=== PATIENT | female | born 1975 | race Caucasian/White ===

== ENCOUNTER 2022-01-06 08:16 | Emergency (ER) | payer BC, SELFPAY ==
[2022-01-06] VITALS (8 sets, daily range): BP systolic 138–153; BP diastolic 88–106; PULSE 87–88; RESP 16–20; O2SAT 95–100
--- NOTE | ~2022-01-06 | US_ITS ---
EXAMINATION: US abdomen limited DATE: 01/06/2022 09:28 INDICATION: Right upper quadrant abdominal pain. TECHNIQUE: Multiple grayscale and Doppler ultrasound images of the abdomen were obtained. COMPARISON: CT abdomen and pelvis 05/09/2017 FINDINGS: The visualized portions of the head and body of the pancreas are normal. The liver is vaibhav l without focal lesion. No liver surface nodularity. There is normal flow in main portal vein. The ga llbladder is normal in size. No gallstones or gallbladder wall thickening. There was no sonographic M urphy sign. The common duct is normal and measures 3 mm. IMPRESSION: 1. Normal right upper quadrant ultrasound. Reviewed, dictated and finalized at location A.
--- NOTE | 2022-01-06 08:45 | PC.NURSE ---
EDP at bedside to assess pt.
--- NOTE | 2022-01-06 08:48 | ED.ABDPAIN ---
HPI - Abdominal Pain General Chief Complaint: Abdominal Pain Stated Complaint: abd pain Time Seen by Provider: 01/06/22 08:43 Source: patient Mode of arrival: ambulatory Limitations: no limitations History of Present Illness HPI narrative: 46-year-old female presents emergency room secondary abdominal pain. She thinks is her gallbladder. She is acetaminophen pain in the past. She never had a work-up and evaluation for this. The pain is noted to be in the epigastric right upper quadrant with some radiation towards the back. No associated vomiting. No chills or fevers. There is a strong family history of gallbladder disease. Related Data Home Medications Medication Instructions Recorded Confirmed buspirone 10 mg tablet 10 mg PO BID 09/18/21 09/18/21 cetirizine 10 mg capsule 10 mg PO DAILY PRN 09/18/21 09/18/21 lisinopril 10 mg tablet 10 mg PO DAILY 09/18/21 09/18/21 sertraline 25 mg tablet 25 mg PO DAILY 09/18/21 09/18/21 thyroid (pork) 15 mg tablet 15 mg PO DAILY 09/18/21 09/18/21 Allergies Allergy/AdvReac Type Severity Reaction Status Date / Time No Known Allergies Allergy Unverified 05/09/17 07:17 Review of Systems Review of Systems: CONSTITUTIONAL: Denies fever, chills, or sweats. EYES: Denies visual changes, redness, or discharge. ENT: Denies rhinorrhea, congestion, sore throat, or otalgia. CARDIOVASCULAR: Denies chest pain, palpitations, or edema. RESPIRATORY: Denies cough or dyspnea. GASTROINTESTINAL: Pain in the epigastric right upper quadrant area. No nausea vomiting diarrhea.. GENITOURINARY: Denies dysuria or hematuria. SKIN: Denies rash or itching. MUSCULOSKELETAL: Denies back pain, joint pain, or myalgia. NEUROLOGIC: Denies headache, numbness, or weakness. PSYCHIATRIC: Denies anxiety or depression. [facility] Family History Family History Father Family history of malignant neoplasm of thyroid Family history of type 2 diabetes mellitus Mother Family history of type 1 diabetes mellitus Social History Social History Alcohol intake: current Exam Narrative: APPEARANCE: Well appearing, no pain or distress, well-nourished. Head normocephalic and atraumatic. EYES: PERRLA/EOMI, conjunctivae very clear. NOSE: Normal with no drainage EARS:TMS clear Lukasz Santa, with good light reflex. THROAT: Pharynx clear, no exudate. NECK: Supple. No adenopathy, no masses. RESPIRATORY: Airway patent, respirations nonlabored. Clear to auscultation bilaterally, no rales, rhonchi, wheezing. CARDIOVASCULAR: Regular rate and rhythm without murmurs, rubs, or gallops. ABDOMINAL: Tenderness to palpation of epigastric right upper quadrant region. No rebound or guarding. Normal bowel sounds. No masses. Musculoskeletal: Moves all extremities. Strength/ROM intact, No edema, No calf tenderness. NEURO: Alert. Cranial nerves II through XII intact. Normal gait. Good coordination. Nonfocal examination. SKIN:: Warm, dry. Normal Color PSYCHIATRIC: Normal affect/mood, normal interaction Course Vital Signs Vital signs: Vital Signs Pulse Rate 87 01/06/22 08:32 Respiratory Rate 20 01/06/22 08:32 Blood Pressure 153/106 H 01/06/22 08:32 Pulse Oximetry 99 01/06/22 08:32 Pulse Rate 87 01/06/22 08:32 Respiratory Rate 20 01/06/22 08:32 Blood Pressure 143/103 H 01/06/22 09:47 Pulse Oximetry 97 01/06/22 09:47 MDM - Abdominal Pain MDM Narrative Medical decision making narrative: Ultrasound official gallbladder is completely normal. This was all reviewed with the patient. Also explained to her that there are occasions where the gallbladder can actually look normal but not function normal. In those cases would need a nuclear medicine scan. Continues to have problems need to follow with a physician getting that scheduled. Patient probably has some gastritis possibly even peptic ulcer disease. We will start
--- NOTE | 2022-01-06 09:03 | PC.NURSE ---
Patient off unit to US.
[2022-01-06] MEDS: MORPHINE SULFATE (*CRX) 2 MG/ML INJ IV PUSH (09:23)
[2022-01-06] MEDS: ONDANSETRON INJ 4 MG/2 ML VIAL IV PUSH (09:24)
[2022-01-06 09:45] LABS: Basophils Absolute Auto 0.1 K/mm3 (0.0-0.1); Basophils Percent Auto 0.7 % (0.2-1.2); Eosinophils Absolute Auto 0.1 K/mm3 (0-0.3); Hematocrit 38.2 % (37.0-47.0); Immature Granulocyte Absolute 0.03 K/mm3 (0.00-0.031); Immature Granulocyte Percent A 0.4 % (0-0.5); Lymphocytes Absolute Auto 0.55 K/mm3 (0.9-3.2); Lymphocytes Percent Auto 7.5 % (18.3-44.2); Mean Corpuscular Hemoglobin 29.3 pg (26-34); Mean Corpuscular Volume 86.2 fl (80-100); Monocytes Absolute Auto 0.3 K/mm3 (0.1-0.6); Monocytes Percent Auto 3.7 % (2.6-8.5); Neutrophils Absolute Auto 6.4 K/mm3 (1.3-6.7); Neutrophils Percent Auto 86.7 % (45.5-73.1); Platelet Count Result 319 k/mm3 (150-375); Red Blood Count 4.43 M/mm3 (4.2-5.4); Red Cell Distribution Width 12.5 % (11.5-14.5); White Blood Count 7.3 K/mm3 (4.5-10.0)
[2022-01-06 09:57] LABS: Alanine Aminotransferase 12 U/L (4-35); Albumin Level 5.1 g/dL (3.5-5.1); Alkaline Phosphatase 56 U/L (38-126); Anion Gap 11 mmol/L (8-16); Aspartate Amino Transferase 24 U/L (14-36); Bilirubin,Total 0.4 mg/dL (0.2-1.3); Blood Urea Nitrogen 16 mg/dL (7-17); Calcium 8.9 mg/dL (8.4-10.2); Carbon Dioxide 17 mmol/L (22-30); Chloride 105 mmol/L (98-107); Estimated CRCL calculation 107 ml/min; Estimated Glomerular Filt Rate > 60; Glucose 127 mg/dL (65-110); Lipase 59 U/L (23-300); Potassium 4.4 mmol/L (3.4-5.0); Sodium 133 mmol/L (137-145)
--- NOTE | 2022-01-06 09:58 | PC.NURSE ---
EDP back at bedside to update patient on results and plan of care.
== END 2022-01-06 10:17 | disposition home or self-care (01) ==
PROVIDERS: Emergency Provider Emergency Medicine
DX: K29.70 Gastritis, unspecified, without bleeding (principal); K29.90 Gastroduodenitis, unspecified, without bleeding; Z79.899 Other long term (current) drug therapy
CPT/HCPCS: 36415; 76705; 80053; 83690; 85025; 96374; 96375; 99284; J2270; J2405

== ENCOUNTER 2022-08-05 01:20 | Day surgery (SDC) | payer BC, SELFPAY ==
[2022-07-30 12:16] VITALS: BMI 28.2
--- NOTE | 2022-07-30 12:18 | PC.NURSE ---
Report to the Outpatient Waiting Room, entrance under the green pavilion located off [facility], at time _0600__ on date _08/05/22_. Planned Procedure Time: _0730_. Time changes happen often and if your time is changed the preop area will call you the afternoon before. - You and your visitor will be asked to self-screen and do not enter if you have any COVID symptoms. - We encourage only one visitor and NO visitors under age 16 are allowed at this time. Your visitor will receive communication by the phone number that is given day of service. - The patient visitor is requested to social distance or may leave the building when not with patient due to restrictions. - A mask is required within the hospital. Patients may have clear liquids (water, carbonated beverages, clear teas, apple juice) until 3 hours prior to surgery with a maximum of 20 ounces. - No food from midnight until time of surgery - Infants may have breast milk until 4 hours before surgery, infant formula 6 hours prior to surgery. - Children will be allowed to drink immediately following surgery. If applicable, please bring a bottle or sippy cup to assist with drinking. Juice, water, soda, and popsicles are readily available. For infants on formula, please bring formula the day of surgery. Pacifiers are allowed. Take the following medications with a SIP of water the morning of surgery: Medications to discontinue per physician Date to take last dose Please no make-up, nail kiswahili, hairspray, perfume, deodorant, or body powder the day of surgery. No jewelry (including any body piercings) or valuables the day of surgery, leave them at home. Please take a shower or bath the night before, or the morning of, surgery with an antibacterial soap. Wear comfortable, loose fitting clothing. Children are encouraged to wear pajamas. - Jewelry must be removed prior to entering the operating room. Rings and piercings that are not removed may be cut off. - The hospital will not accept responsibility for valuables. - Please leave all valuables, including medications, at home the day of surgery. If you are going home after surgery, a licensed driver material handler must drive you home. - NO public transportation without another adult. - We recommend that an adult stay with you for 24 hours following discharge. - We also recommend that you do not drive, make important decision, drink alcoholic beverages, or take any drugs that were not prescribed by your health care provider for at least 24 hours after your discharge time. For Pediatric surgeries, we recommend two adults accompany the child home. Follow any additional instructions given to you from your surgeon. If you or anyone in your household have experienced Covid symptoms in the past week, please notify your surgeon or the nurse liaison at the phone number below for possible testing. Telephone instructions given to _patient__and asked if any additional questions and then verbalized understanding. Patient advised to call surgeon office or pre surgery nurse liaison [phone] if any additional questions.
[2022-08-05] MEDS: ACETAMINOPHEN 500 MG TABLET 1000 MG PO (06:17)
[2022-08-05 06:36] VITALS: BP 132/96; PULSE 80; RESP 16; TEMP 36.4; O2SAT 98
[2022-08-05] MEDS: LACTATED RINGERS 1,000 ML 30 ML IV CONT (06:56)
--- NOTE | 2022-08-05 06:58 | WPDANESEPPF ---
Anes - Initial Pre Proc Eval Procedure: Operation Date: 08/05/22 07:30 Proposed Procedures p Hysteroscopy, with Patricia Endometrial Ablation - Brit Davidson MD Date/Time: 08/05/22 06:58 Surgeon: Brit Davidson MD Pre Op Diagnosis: menorrhagia Patient Data Age: 46 Gender: F Height: 1.68 m Weight: 82.2 kg Last Vital Signs Temp 36.4 C 08/05/22 06:36 Pulse 80 08/05/22 06:36 Resp 16 08/05/22 06:36 BP 132/96 H 08/05/22 06:36 Pulse Ox 98 08/05/22 06:36 O2 Del Method Room Air 08/05/22 06:36 Allergies Allergy/AdvReac Type Severity Reaction Status Date / Time No Known Allergies Allergy Verified 08/05/22 06:16 Home Medications Medication Instructions Recorded Confirmed Type cetirizine 10 mg capsule (Zyrtec) 10 mg PO DAILY PRN allergy 09/18/21 08/05/22 History lisinopril 10 mg tablet 10 mg PO DAILY 09/18/21 07/30/22 History thyroid (pork) 15 mg tablet 15 mg PO DAILY 09/18/21 07/30/22 History ([place] Thyroid) Patient hx anesthesia problems: none Family hx anesthesia problems: none Results Review: All pre-operative results and documents have been reviewed as part of the pre-operative evaluation. [facility] Surgical History Surgical History (Updated 08/05/22 @ 06:58 by Isreal Chadwick MD) H/O colonoscopy Family History Family History Father Family history of malignant neoplasm of thyroid Family history of type 2 diabetes mellitus Mother Family history of type 1 diabetes mellitus Social History Social History Years smoked: 10 Smoking status: Former smoker Alcohol intake: current Alcohol use details: soically on weekends Substance use: never Substance use type: does not use Last use: 07/24/2012 Living arrangements: with family Spiritual care concerns: No Anes - Eval Final PreProcedure Day of Procedure 08/05/22 06:58 Patient weight: overweight Heart: regular rate and rhythm Lungs: clear to auscultation Airway: Mallampati scale class II Neurological: alert and oriented Last oral intake: >/= 8 hours ASA classification: II Emergent: no Anesthetic plan: proceed Anesthesia type and monitoring: general GIVS and standard monitoring Results Review: All pre-operative results and documents have been reviewed as part of the pre-operative evaluation. Informed Consent: The patient's anesthetic plan and its attendant risks and benefits were discussed with the patient/family/POA. Questions were solicited and answers provided to the satisfaction of the patient/family/POA.
--- NOTE | 2022-08-05 07:14 | WPDHPUPDATE1 ---
History and Physical Update Update Date/Time: 08/05/22 07:14 History and Physical has been reviewed, including an updated exam of the patient. There are NO changes in the patient's condition. Risks, benefits, and alternatives have been discussed and questions answered. Patient agrees to proceed with procedure.
--- NOTE | 2022-08-05 07:29 | PM.IMHP ---
H&P: HPI History of Present Illness Date/Time: 08/05/22 07:29 Chief Complaint: Menorrhagia Narrative: this patient is a 46-year-old female with severe menorrhagia. We have agreed to perform laparoscopic bilateral salpingectomy and endometrial ablation. She understands that there is wrist surgery. She understands injuries may occur that result in hospitalization, more surgery, severe illness. She understands risk of hemorrhage and infection. Review of Systems Review of Systems: All systems reviewed & are unremarkable except as noted in HPI and below Constitutional: Constitutional: Denies chills, Denies fatigue, Denies fever(s) and Denies weakness Eyes: Eyes: Denies blurry vision, Denies change in vision, Denies loss of peripheral vision, Denies loss of vision, Denies other visual disturbances and Denies eye pain ENT: Denies vertigo, Denies dizziness, Denies hearing loss, Denies mouth pain, Denies nasal obstruction, Denies neck mass and Denies neck pain Cardiovascular: Cardiovascular: Denies chest pain, Denies diaphoresis, Denies syncope, Denies leg edema and Denies dyspnea Respiratory: Respiratory: Denies chest congestion, Denies cough, Denies hemoptysis, Denies dyspnea and Denies wheezing Gastrointestinal: Gastrointestinal: Denies abdominal pain, Denies constipation, Denies diarrhea, Denies nausea and Denies vomiting Genitourinary: Genitourinary: Denies hematuria, Denies change in libido, Denies nocturia, Denies genital lesions, Denies flank pain and Denies urinary urgency Musculoskeletal: Musculoskeletal: Denies abnormal gait, Denies back pain, Denies myalgias, Denies arthralgias, Denies joint swelling, Denies muscle weakness and Denies neck pain Integumentary/Breasts: Skin/Breast: Denies swelling, Denies breast pain, Denies breast mass, Denies dry skin, Denies nipple discharge, Denies unusual bruising and Denies jaundice Neurologic: Denies Neuro-related abnormal movements, Denies Abnormal speech present, Denies abnormal gait, Denies behavioral changes, Denies confusion, Denies vertigo, Denies dizziness, Denies syncope, Denies loss of vision, Denies memory loss, Denies convulsions and Denies weakness Psychiatric: Psychiatric: Denies abnormal sleep pattern, Denies behavioral changes, Denies change in libido, Denies confusion, Denies depression, Denies anhedonia and Denies memory loss Endocrine: Endocrine: Reports no additional endocrine complaints, Denies change in libido and Denies fatigue Hematologic/Lymphatic: Hematologic/Lymphatic: Reports no additional hematologic/lymphatic complaints Allergic/Immunologic: Allergic/Immunologic: Reports no additional allergic/immunologic complaints and Denies wheezing PMFSH Surgical History Surgical History (Updated 08/05/22 @ 06:58 by Isreal Chadwick MD) H/O colonoscopy Family History Family History Father Family history of malignant neoplasm of thyroid Family history of type 2 diabetes mellitus Mother Family history of type 1 diabetes mellitus Social History Social History Years smoked: 10 Smoking status: Former smoker Alcohol intake: current Alcohol use details: soically on weekends Substance use: never Substance use type: does not use Last use: 07/24/2012 Living arrangements: with family Spiritual care concerns: No Meds Home Medications and Allergies Home Medications Medication Instructions Recorded Confirmed Type cetirizine 10 mg capsule (Zyrtec) 10 mg PO DAILY PRN allergy 09/18/21 08/05/22 History lisinopril 10 mg tablet 10 mg PO DAILY 09/18/21 07/30/22 History thyroid (pork) 15 mg tablet 15 mg PO DAILY 09/18/21 07/30/22 History ([place] Thyroid) Allergies Allergy/AdvReac Type Severity Reaction Status Date / Time No Known Allergies Allergy Verified 08/05/22 06:16 Vital Signs Vital Signs - 24 hr 08/05/22 06:36 Tem
[2022-08-05] MEDS: LIDOCAINE HCL 1% PF 30 ML VIAL 10 ML INFILTRATE (07:57)
[2022-08-05 08:14] VITALS: BP 118/89; PULSE 72; RESP 12; O2SAT 95
--- NOTE | 2022-08-05 08:32 | W.PM.PROC2 ---
Procedure Note - Detailed Date of Procedure 08/05/22 Pre-op Diagnosis menorrhagia Post-op Diagnosis Same Procedure Performed endometrial ablation with hysteroscopy d&c Surgeon Brit Davidson MD Anesthesia MAC Indications Severe menorrhagia Findings Normal vulva vagina and cervix. Normal endometrium. Description of Procedure The patient was taken to the operating room. She was prepped and draped in the dorsal lithotomy position after induction of mac anesthesia. A speculum was placed in the vagina. Cervix grasped with a tenaculum. The cervix was dilated to about 1 cm. The hysteroscope was inserted. The above findings were noted. Endometrial curettage was performed with a medium-size curette. All surfaces of the endometrium were affected by the curettage. The specimens were collected and sent to pathology. Measurements were taken of the uterus and cervix. The uterine length was then entered into the hand piece of the Patricia device. The device was inserted into the intrauterine cavity. The array of the device was expanded. The balloon cuff was inflated. A good seal was achieved. The energy and safety cycles were initiated and completed. The array was collapsed and the instrument was withdrawn after deflating the balloon cuff. Hysteroscope was reinserted. Above findings were noted. The hysteroscope was removed. The patient tolerated the procedure well. The speculum and tenaculum were removed. She was taken to recovery in stable condition. Sponge lap and needle counts were correct x2. Estimated Blood Loss -5.0 Pathology Yes Complications No immediate complications Condition Stable Disposition Same day
[2022-08-05 08:40] VITALS: BP 140/95; PULSE 65; RESP 20
[2022-08-05] MEDS: oxyCODONE HCL (*CRX) 5 MG TAB IR PO (08:57)
[2022-08-05 09:10] VITALS: BP 122/85; PULSE 60; RESP 20
[2022-08-05 09:25] VITALS: BP 119/97; PULSE 64; RESP 20
== END 2022-08-05 09:35 | disposition home or self-care (01) ==
PROVIDERS: Visit Provider Obstetrics & Gynecology
PROC: 0U5B8ZZ Destruction of Endometrium, Via Natural or Artificial Opening Endoscopic (ICD-10-PCS; CPT 58563; principal; 2022-08-05 07:30)
DX: N92.0 Excessive and frequent menstruation with regular cycle (principal); Z87.891 Personal history of nicotine dependence
CPT/HCPCS: 58563; 88305; A9270; J2250; J2704; J3010; J7030; J7120